=== PATIENT | female | born 1950 | race Caucasian/White ===

== ENCOUNTER → 2018-06-14 | Outpatient (CLI) | payer BC ==
[~2018-06-14] MED LIST: ASPI81TA94 PO; ATOR10TA65 PO; CEPH500T7 PO; FAMO20TA28 PO; HIGH BP MEDS; IBU600 PO; IBUP600T22 PO; LISI20TA29 PO; MEPE100T3 PO; METO25TA23 PO; PER PO; PHEN200T32 PO; VERA240T12 PO
--- NOTE | 2018-06-14 11:28 | RADIOLOGY IMAGING REPORT ---
FACILITY: [facility] PATIENT NAME: HANNAH MOSES : [id number] MR: [id number] V: [id number] EXAM DATE: [id number] ORDERING PHYSICIAN: NOMAN ROGERS TECHNOLOGIST: Vikki Powell PROCEDURE:BILATERAL DIGITAL SCREENING MAMMOGRAM WITH CAD ASSISTED INTERPRETATION & 3D TOMOSYNTHESIS COMPARISON:Prior mammogram 03/04/15. INDICATIONS:SCREENING FINDINGS: A small amount of fibroglandular tissue is seen throughout the breasts. The parenchymal pattern has remained stable allowing for difference in mammographic technique & patient positioning. There is no evidence of malignant appearing mass, malignant appearing calcifications or other secondary sign of malignancy in either breast. DIAGNOSTIC CATEGORY 1--NEGATIVE. RECOMMENDATIONS: ROUTINE MAMMOGRAM AND CLINICAL EVALUATION. IMPRESSION: BIRADS 1: Negative. No significant abnormality is seen. Dictated by: Vandana Jay M.D. on 06/14/2018 at 10:37 Transcribed by: CORNELL on 06/14/2018 at 10:42 Approved by: Vandana Jay M.D. on 06/14/2018 at 11:26 [facility]
== END ==
LOC: MAMO 08:45
PROVIDERS: ATTEND Nurse Practitioner Family
DX: Z12.31 Encounter for screening mammogram for malignant neoplasm of breast (principal)
CPT/HCPCS: 77063; 77067